=== PATIENT | male | born 1975 | race Caucasian/White ===

== ENCOUNTER 2024-03-01 17:15 | Emergency (ER) | payer BC, SELFPAY ==
[2024-03-01 17:21] VITALS: BP 190/119
[2024-03-01 17:41] LABS: % Basophils 0.2 % (0-2); % Eosinophils 0.7 % (0-6); % Immature Granulocytes 0.3 % (0-0.5); % Lymphocytes 17.2 % (20.5-51.1); % Monocytes 6.5 % (1.7-9.3); % Neutrophils 75.1 % (42.2-75.2); Absolute Eosinophils 0.1 10^3/uL (0-0.7); Absolute Lymphocytes 1.7 10^3/uL (1.2-3.4); Absolute Monocytes 0.7 10^3/uL (0.1-0.6); Absolute Neutrophils 7.6 10^3/uL (1.4-6.5); Hematocrit 41.9 % (39.0-52.0); Hemoglobin 14.5 g/dL (13.0-18.0); Mean Corp Hgb Conc. 34.6 g/dL (33.0-37.0); Mean Corpuscular Hgb 30.1 pg (27.0-31.0); Mean Corpuscular Volume 86.9 fL (80.0-94.0); Mean Platelet Volume 8.9 fL (7.4-10.4); Nucleated Red Blood Cells % 0 % (-); Platelet Count 272 10^3/uL (130-400); Red Blood Cell Count 4.82 10^6/uL (4.70-6.10); Red Cell Dist. Width 11.8 % (11.5-14.5); White Blood Cell Count 10.1 10^3/uL (4.8-10.8)
[2024-03-01 18:07] LABS: ALT (SGPT) 29 U/L (0-50); AST (SGOT) 29 U/L (17-59); Albumin 4.7 g/dl (3.5-5.0); Alkaline Phosphatase 75 U/L (38-126); Blood Urea Nitrogen 20 mg/dl (9-20); Carbon Dioxide 26 mmol/L (22-30); Chloride 103 mmol/L (98-107); Glucose 91 mg/dl (70-99); Potassium 4.6 mmol/L (3.5-5.1); Sodium 139 mmol/L (135-145); Total Bilirubin 0.6 mg/dl (0.2-1.3); Total Protein 7.8 g/dl (6.3-8.2); eGFR > 60.00
[2024-03-01 18:11] LABS: Troponin I < 0.012 ng/ml
[2024-03-01 18:59] VITALS: BP 141/100
[2024-03-01 19:00] VITALS: BP 148/98
--- NOTE | 2024-03-01 20:06 | ED.GENMED ---
History of Present Illness
General
Chief Complaint: Cardiac Symptoms
Source: patient
Exam Limitations: none
Time Seen by Provider: 03/01/24 19:39
History of Present Illness
History of Present Illness:
This is a 48 year old male that comes in with c/o SOB. Sat that he has been getting OOB and his heart rate feels like it is pounding and racing. States that his heart rate went up to 112. States that this has been going on for the past couple of
days. States that he has some heart burn. Denies any fever, chills, SOB at this time, abd pain, nausea, vomiting, diarrhea, headache, dizziness, urinary burning.
Past History
Past History
ED Past Medical History: Other (Sleep apnea); Negative Asthma, HTN, Hypercholesterolemia or NIDDM
ED Past Surgical History: Orthopedic (Right knee surery )
Social History
Tobacco: Non-smoker
Alcohol: None
Personal:
Living: with family
Review of Systems
Review of Systems
All Other Systems: ROS reviewed and negative except as documented in HPI and ROS
Constitutional: Reports no symptoms; Denies fever or chills
EENT: Reports no symptoms
Respiratory: Reports trouble breathing; Denies cough
Cardiac: Reports chest pain (Feels like indigestion)
ABD/GI: Reports no symptoms; Denies abdominal pain, nausea, vomiting or diarrhea
: Reports no symptoms; Denies dysuria, frequency or urgency
Musculoskeletal: Reports no symptoms
Skin: Reports no symptoms
Neurological: Reports no symptoms; Denies dizzy or headache
Psychiatric: Reports no symptoms
Phy Exam
General Physical Exam
General Presentation: no apparent distress
General age: appears stated age
General Skin: warm and dry
General Habitus: obese
General Mental: alert
General Hydration: appears well hydrated
ENT Exam
ENT Exam: TM's normal, pharynx normal and neck supple
Eye Exam
Eye Exam: EOMI
Cardiovascular Exam
Cardiovascular Exam: regular rate/rhythm, no edema, no JVD, no murmur and normal peripheral pulses
Pulmonary Exam
Pulmonary Exam: lungs clear, no respiratory distress, no rales, chest non tender, no crackles, no rhonchi, no wheezing and no cough
Gastrointestinal Exam
Gastrointestinal Exam: normal bowel sounds, non tender, soft, no organomegaly, no pulsatile mass, non distended and other (Obese)
Musculoskeletal Exam
Musculoskeletal Exam: full ROM and no edema
Skin Exam
Skin Exam: normal color, warm/dry, no rash and no petechia
Psychiatric Exam
Psychiatric Exam: normal mood/affect
Course
Orders/Labs/Results
Orders:
Orders
03/01/24 17:25
Electrocardiogram (*1) Urgent
Reason for Study: Chest Pain
03/01/24 17:26
EKG- Treatment ONCE
03/01/24 17:27
CR Chest - 2 Views Urgent
Comment:
Reason For Exam: chest pain
03/01/24 17:36
Complete Blood Count/With Diff Urgent
Comprehensive Metabolic Panel Urgent
Troponin I Urgent
03/01/24 20:02
Pantoprazole [Protonix IV] 40 mg IV NOW STA
03/01/24 20:03
EKG- Treatment ONCE
03/01/24 20:26
D-Dimer Urgent
Troponin I Urgent
03/01/24 20:35
Electrocardiogram (*1) Urgent
Reason for Study: Chest Pain
Other Reason for Exam: REPEAT WITH tROPONIN
Abnormal Lab Results
03/01/24
17:36
Absolute Neuts (auto) 7.6 H 10^3/uL
(1.4-6.5)
Absolute Monos (auto) 0.7 H 10^3/uL
(0.1-0.6)
Lymphocytes % 17.2 L %
(20.5-51.1)
03/01/24 17:36
03/01/24 17:36
Labs unremarkable. Troponin <0.012,
Second Troponin <0.012, D-dimer 0.47
Vital Signs
Initial and Last Documented VS:
Initial Vital Signs
Pulse Resp BP Pulse Ox
72 18 190/119 98
03/01/24 17:21 03/01/24 17:21 03/01/24 17:21 03/01/24 17:21
Last Documented Vital Signs
Temp Pulse Resp BP Pulse Ox
98.2 F 71 18 143/89 97
03/01/24 20:44 03/01/24 20:44 03/01/24 17:21 03/01/24 20:44 03/01/24 20:44
MDM/Problems Addressed
Differential Diagnosis Includes:
SOB, Obesity, PE
MDM/Problems Addressed:
This is a 48 year old male that comes in with c/o SOB. States that he feels like his heart is racing and he feels SOB. States that he also has some heart burn. Patient was sent in by PCP for 'peak T waves'.
Will get labs, Chest and D-dimer. If elevated will get CT of chest.
Back into see patient. Explained that his blood work is normal and the D-dimer is negative. states that he has not had any further heart burn since given Protonix. Will give patient a script for Protonixc. Patient to follow up with the family
doctor. Return with any concerns.
Chronic conditions affecting care:
NA
Acute Exacerbation and/or Progression of Chronic Illness:
NA
*Radiology
Radiology exam reviewed: preliminary read by ED provider (Chest-Negative for any cardiopulmonary process. ) and radiology read reviewed (Chest-NO radiographic evidence for acute cardiopulmonary disease. )
*Pulse Oximetry
Patient hypoxic: no
*EKG
Interpreted by ED Provider?: Yes
Heart Rate: 66
Rate: normal
Rhythm: sinus
[place]: normal axis
Interval: normal interval
QRS Pattern: normal QRS
Ischemia: no ischemia
*Team Supervisor Interpretation
Rate: Team Supervisor- N/A
*Critical Care Note
Total Time (30-74mins, 75-104mins- exclusive of procedures): Not Applicable
ED Attending Note
-
Portions of this chart may have been created with voice recognition software.� Occasional wrong word or��sound alike� substitutions may have occurred due to the inherent limitations of voice recognition software.
Discharge Plan
Departure
Patient Disposition: Home (Routine Discharge)
Date of Disposition: 03/01/24
Time of Disposition: 23:10
Patient with high blood pressure during this ER visit?: Yes
Condition: Good
Covid-19: Not Applicable
Discharge Problem:
Chest pain due to GERD
Instructions: Acid reflux and GERD in adults, BLOOD PRESSURE
Prescriptions:
New
pantoprazole [Protonix] 40 mg tablet,delayed release (DR/EC)
40 mg PO DAILY Qty: 30 0RF
Referrals:
James Goyal DO [Family Provider] - Call in 1-3 days for appt
Activity Restrictions/Additional Instructions:
As discussed, your blood work, chest x-ray and ECG are normal. This may all be related to Reflux. You have had a prescription for Protonix sent to your Pharmacy. Please follow up with the family doctor. IF YOU HAVE INCREASED OR CHANGING PAIN, OR YOU
HAVE ANY OTHER CONCERNS PLEASE RETURN TO THE EMERGENCY ROOM.
Interventions
Interventions:
*Risk Screen - Suicide Last Done: 03/01/24 17:21
*General Assessment Last Done: 03/01/24 17:21
*Neglect/Abuse Screening Last Done: 03/01/24 17:21
*ED COVID-19 Vaccine History Last Done: 03/01/24 21:10
ED- Cardiac Assessment Last Done: 03/01/24 21:10
ED- Pulmonary Assessment Last Done: 03/01/24 21:10
Discharge Date and Time
Print Language: CHILEAN
[2024-03-01] MEDS: PROTONIX IV 40 MG IV (20:24)
[2024-03-01 20:44] VITALS: BP 143/89
[2024-03-01 20:59] LABS: D-Dimer 0.47 ug/mlFEU (0.00-0.50)
[2024-03-01 21:40] LABS: Troponin I < 0.012 ng/ml
[2024-03-01 23:26] VITALS: BP 147/99
== END 2024-03-01 23:28 | disposition home or self-care (01) ==
LOC: EMR 17:15
PROVIDERS: Clinical Nurse Specialist Family Health; EMERGENCY PHYSICIAN Emergency Medicine; FAMILY PHYSICIAN Family Medicine
DX: K21.9 Gastro-esophageal reflux disease without esophagitis (principal); R03.0 Elevated blood-pressure reading, without diagnosis of hypertension
CPT/HCPCS: 99285; 96374; 71046; 80053; 84484; 85025; 85379; 93005